=== PATIENT | female | born 1930 | race Caucasian/White ===

== ENCOUNTER 2017-04-05 13:59 | Emergency (ER) | payer MEDICARE, BC ==
--- NOTE | ~2017-04-05 | US84 ---
[id number] [address] [address] [id number] E MR#: [id number] Acc #: [id number] NAME: NEGRO PETTY : 1930 SEX: F STUDY DATE/TIME: 04/05/2017 16:06 UNIT: SED ROOM: STUDY DESCRIPTION: US LE Veins Complete Jeovany Stdy Attending Physician: Kiara Wilkins M.D. Ordering Physician: Kiara Wilkins M.D. Primary Care Physician: Matt Hernández M.D. MEDICAL IMAGING REPORT This report is preliminary unless electronic signature is present. EXAM Bilateral lower extremity venous duplex 04/05/2017 HISTORY Bilateral lower extremity edema for 2 days. Evaluate for deep vein thrombosis. FINDINGS Stone-scale images of the lower extremities were obtained as well as Doppler waveform spectral analysis and color flow Doppler imaging. There is normal blood flow and compressibility in the bilateral common femoral veins, deep femoral veins, superficial femoral veins and popliteal veins. Normal blood flow and compressibility is seen in the calf veins bilaterally. There is a 5.7 cm x 1.9 cm x 3.2 cm fluid collection in the left popliteal fossa characteristic of a Bakers cyst. IMPRESSION 1. No evidence of deep vein thrombosis within the lower extremities bilaterally. 2. 5.7 cm fluid collection in the left popliteal fossa characteristic of a Bakers cyst. Dictated by... Jean Acevedo M.D. THIS IS AN ELECTRONICALLY VERIFIED REPORT Jean Acevedo M.D. at 04/06/2017 7:21 AM LARA/[place] TD: 04/05/2017 19:42 JOB #: [id number] MEDICAL IMAGING REPORT Page 1 of 1
--- NOTE | ~2017-04-05 | EKG ---
PATIENT: NEGRO PETTY UNIT #: [id number] Ventricular Rate: 61 BPM Atrial Rate: 61 BPM P-R Interval: 168 ms QRS Duration: 88 ms Q-T Interval: 440 ms QTC Calculation(Bezet): 442 ms P [place]: 36 degrees Calculated R [place]: -34 degrees Calculated T [place]: 40 degrees Diagnosis Line: Sinus rhythm with Premature supraventricular Diagnosis Line: complexes Diagnosis Line: Left axis deviation Diagnosis Line: Minimal voltage criteria for LVH, may be normal Diagnosis Line: variant Diagnosis Line: Anterolateral infarct (cited on or before Diagnosis Line: 23-OCT-2016) Diagnosis Line: Abnormal ECG Diagnosis Line: When compared with ECG of 23-OCT-2016 11:04, Diagnosis Line: No significant change was found Diagnosis Line: Confirmed by ARCELIA ECKERT MD ([id number]) on Diagnosis Line: 04/06/2017 10:58:18 AM INTERPRETING MD: TOMEKA SANCHEZ
--- NOTE | ~2017-04-05 | CR72 ---
[facility] A Service of [facility] RADIOLOGY TEXT RESULTS PATIENT: NEGRO PETTY LOCATION: SED : [birth year] UNIT #: [id number] AGE: [address]: Kiara Wilkins MD SEX: F ORDER DR: [id number] [address] [address] [id number] E MR#: [id number] Acc #: [id number] NAME: NEGRO PETTY : 1930 SEX: F STUDY DATE/TIME: 04/05/2017 14:58 UNIT: SED ROOM: STUDY DESCRIPTION: CR Chest Single View Portable Attending Physician: Kiara Wilkins M.D. Ordering Physician: Kiara Wilkins M.D. Primary Care Physician: Matt Hernández M.D. MEDICAL IMAGING REPORT This report is preliminary unless electronic signature is present. EXAM Portable chest. INDICATION Swollen legs, congestive heart failure, chest pain. Chest pain began today. COMPARISON 10/23/2016 FINDINGS There are mild interstitial opacities in the lungs which may indicate mild interstitial edema. Cardiomegaly is stable. Atherosclerotic calcification of the aorta. IMPRESSION Cardiomegaly with mild interstitial opacities which may reflect interstitial edema. Dictated by... Saleem Wade M.D. THIS IS AN ELECTRONICALLY VERIFIED REPORT Saleem Wade M.D. at 04/05/2017 5:06 PM ARS/oskar TD: 04/05/2017 16:29 JOB #: [id number] MEDICAL IMAGING REPORT [facility] A Service [facility] RADIOLOGY TEXT RESULTS PATIENT: NEGRO PETTY LOCATION: SED : [birth year] UNIT #: [id number] AGE: [address]: Kiara Wilkins MD SEX: F ORDER DR: Page 1 of 1
[~2017-04-05 13:59] MED LIST: AMOXICILLIN500 M1 PO; ASTELIN137 MCG INH; AUGMENTIN PO; AUGMENTIN1 TAB.SR1 PO; BACTRIM DS TABL1 TA1 PO; BENADRYL25 MG PO; BYSTOLIC PO; BYSTOLIC5 MG PO; CORTISPORI10 ML OTIC AS; COUMADIN PO; COUMADIN3 MG PO; FIORICET 50-321 EACH PO; FLEXERIL10 M1 PO; GABAPENTIN300 M2 PO; HYDROCODON-ACE1 EAC7 PO; LEVO-T100 MCG PO; LEVOTHYROXINE100 MCG PO; LIDODERM30 EA TOP; MACULAR VITAMI1 EACH PO; MEDROL PO; NAPROSYN-EC500 MG PO; NEURONTIN300 MG PO; NEXIUM PO; NORCO 7.5/325 T1 TAB PO; OCUVITE TABLET1 TAB; OMNICEF300 MG PO; PERCOCET 51 UDTAB 5/ PO; PRAVASTATIN SOD20 MG PO; PREDNISONE PO; PROAIR HFA8.5 GM IH; ROBAXIN PO; SENNA LAXATIVE8.6 M1 PO; SINGULAIR PO; SPIRIVA18 MCG INH; SYMBICORT INH; SYNTHROID PO; TRAMADOL PO; VALIUM2 MG PO; VESICARE PO; VICODIN PO; WARFARIN SODIUM3 MG PO; ZITHROMAX PO; ZYRTEC PO; [UNRECOGNIZED DRUG - OTHER] PO
[2017-04-05 15:07] LABS: EOSINOPHIL# 0.1 X10e3 (0-0.7); EOSINOPHIL% 3.1 % (0.0-7.0); HEMATOCRIT 41.1 % (35.0-45.0); HEMOGLOBIN 13.6 gm/dL (12.0-16.0); LYMPHOCYTE# 1.2 X10e3 (1.0-3.5); LYMPHOCYTE% 28.8 % (17.0-45.0); MEAN CELL VOLUME 89.6 FL (83-96); MEAN CORPUSCULAR HEMOGLOBIN 29.8 PG (28-34); MEAN CORPUSCULAR HGB CONC 33.2 g/dL (30-36); MEAN PLATELET VOLUME 8.6 FL (6.5-11.5); MONOCYTE# 0.5 X10e3 (0-1.0); MONOCYTE% 12.6 % (3.0-12.0); NEUTROPHIL# 2.3 X10e3 (1.5-7.1); NEUTROPHIL% 54.5 % (40-75); PLATELET COUNT 172 X10e3 (140-420); RED BLOOD COUNT 4.58 X10e (3.90-5.30); WHITE BLOOD COUNT 4.2 X10e3 (4.0-10.5)
[2017-04-05 15:16] LABS: POC - CKMB 1.9 ng/mL (0.0-7.9); POC - TROPONIN <0.05 ng/mL (<=0.05)
[2017-04-05 15:23] LABS: DIFF IND NO
[2017-04-05 15:25] LABS: INR 2.8; PROTHROMBIN TIME (PATIENT) 32.3 SECONDS (9.5-12.4)
[2017-04-05 15:27] LABS: ALBUMIN SERUM 3.8 g/dL (3.5-5.0); ALKALINE PHOSPHATASE 59 U/L (32-92); ALT (SGPT) 16 U/L (10-40); AST (SGOT) 20 U/L (10-42); BILIRUBIN,TOTAL 0.3 mg/dL (0.2-2.0); BLOOD UREA NITROGEN 31 mg/dL (9-23); BUN/CREATININE RATIO 34.44; CALCIUM SERUM 8.3 mg/dL (8.4-10.2); CARBON DIOXIDE 31 mmol/L (22-31); CHLORIDE 103 mmol/L (100-111); CREATININE SERUM 0.9 mg/dL (0.6-1.4); GLOM FILT RATE Estimated 57.1 mL/min (>60); GLUCOSE FASTING 92 mg/dL (70-110); POTASSIUM 4.2 mmol/L (3.5-5.1); PROTEIN TOTAL SERUM 6.6 g/dL (6.0-8.3); SODIUM 137 mmol/L (135-145)
[2017-04-05 15:28] LABS: BILIRUBIN, DIRECT <0.1 mg/dL (0.0-0.2); BILIRUBIN,INDIRECT 0.2 mg/dL (0.0-0.9)
[2017-04-05 17:28] LABS: POC - CKMB 1.4 ng/mL (0.0-7.9); POC - TROPONIN <0.05 ng/mL (<=0.05)
== END 2017-04-05 17:55 | disposition home or self-care (01) ==
LOC: SED 13:59
PROVIDERS: Emergency Medicine
DX: M71.21 Synovial cyst of popliteal space [Baker], right knee (principal); R60.0 Localized edema; I10 Essential (primary) hypertension; Z86.718 Personal history of other venous thrombosis and embolism; Z79.01 Long term (current) use of anticoagulants; Z79.899 Other long term (current) drug therapy; Z88.5 Allergy status to narcotic agent
CPT/HCPCS: 29530; 36415; 71010; 80048; 80076; 82553; 83880; 84484; 85025; 85610; 93005; 93970; 99284

== ENCOUNTER 2017-04-28 06:10 | Emergency (ER) | payer MEDICARE, BC ==
[~2017-04-28] VITALS: Ht 162.6 cm; Wt 81.6 kg
--- NOTE | ~2017-04-28 | CR181 ---
[facility] [place] A Service [facility] RADIOLOGY TEXT RESULTS PATIENT: NEGRO PETTY LOCATION: SED : [birth year] UNIT #: [id number] AGE: [address]: Ratna Maher MD SEX: F ORDER DR: [id number] [place] [id number] E MR#: [id number] Acc #: [id number] NAME: NEGRO PETTY. : 1930 SEX: F STUDY DATE/TIME: 04/28/2017 7:02 UNIT: SED ROOM: STUDY DESCRIPTION: CR Lumbar Spine 2 or 3 Views Attending Physician: Ratna Maher M.D. Ordering Physician: Wallace Christianson Primary Care Physician: Matt Hernández M.D. MEDICAL IMAGING REPORT This report is preliminary unless electronic signature is present. EXAM Lumbar spine, three view series, 04/28/17 HISTORY Low back pain starting this morning FINDINGS Three views of the lumbar spine were obtained. There is disk space narrowing throughout the lumbar spine with a vacuum disk phenomenon at L1-L2, and there is prominent anterior and lateral osteophyte formations at L1-L2 as well as L2-L3. There is no anterior to posterior subluxation. IMPRESSION There is degenerative disk disease throughout the lumbar spine. There is no significant subluxation. There is no fracture visible. Dictated by... Flakito Ruffin M.D. THIS IS AN ELECTRONICALLY VERIFIED REPORT Flakito Ruffin M.D. at 04/28/2017 10:51 AM SHELLY/[place] TD: 04/28/2017 09:37 JOB #: [id number] [facility] A Service [facility] RADIOLOGY TEXT RESULTS PATIENT: NEGRO PETTY LOCATION: SED : [birth year] UNIT #: [id number] AGE: [address]: Ratna Maher MD SEX: F ORDER DR: MEDICAL IMAGING REPORT Page 1 of 1
--- NOTE | ~2017-04-28 | CR72 ---
[facility] A Service of [facility] RADIOLOGY TEXT RESULTS PATIENT: NEGRO PETTY LOCATION: SED : [birth year] UNIT #: [id number] AGE: [address]: Ratna Maher MD SEX: F ORDER DR: [id number] [place] [id number] E MR#: [id number] Acc #: [id number] NAME: NEGRO PETTY. : 1930 SEX: F STUDY DATE/TIME: 04/28/2017 7:02 UNIT: SED ROOM: STUDY DESCRIPTION: CR Chest Single View Portable Attending Physician: Ratna Maher M.D. Ordering Physician: Wallace Christianson Primary Care Physician: Matt Hernández M.D. MEDICAL IMAGING REPORT This report is preliminary unless electronic signature is present. EXAM Portable chest INDICATION Shortness of air starting this morning. Bilateral lower extremity pain. Low back pain. COMPARISON 04/23/2017. FINDINGS A portable view of the chest was obtained. Heart size and vascularity are normal and the lungs are clear. The bones are unremarkable. IMPRESSION No active disease. Dictated by... Flakito Ruffin M.D. THIS IS AN ELECTRONICALLY VERIFIED REPORT Flakito Ruffin M.D. at 04/28/2017 10:51 AM SHELLY/[place] TD: 04/28/2017 09:40 JOB #: [id number] MEDICAL IMAGING REPORT [facility] A Service of [facility] RADIOLOGY TEXT RESULTS PATIENT: NEGRO PETTY LOCATION: SED : [birth year] UNIT #: [id number] AGE: [address]: Ratna Maher MD SEX: F ORDER DR: Page 1 of 1
--- NOTE | ~2017-04-28 | EKG ---
PATIENT: NEGRO PETTY UNIT #: [id number] Ventricular Rate: 63 BPM Atrial Rate: 63 BPM P-R Interval: 152 ms QRS Duration: 82 ms Q-T Interval: 414 ms QTC Calculation(Bezet): 423 ms P [place]: 55 degrees Calculated R [place]: -45 degrees Calculated T [place]: 61 degrees Diagnosis Line: Normal sinus rhythm Diagnosis Line: Left axis deviation Diagnosis Line: Inferior infarct , age undetermined Diagnosis Line: Abnormal ECG Diagnosis Line: When compared with ECG of 05-APR-2017 14:43, Diagnosis Line: Premature supraventricular complexes are no longer Diagnosis Line: Present Diagnosis Line: Diagnosis Line: Diagnosis Line: Confirmed by DENNIS CARTER MD ([id number]) on Diagnosis Line: 05/07/2017 9:55:38 PM INTERPRETING MD: CONNOR
[2017-04-28] MEDS ORDERED: TOBRADEX ST EYE5 ML OU (06:26)
[2017-04-28] MEDS ORDERED: AUGMENTIN PO (06:26)
[2017-04-28 06:44] LABS: BASOPHIL% 0.5 % (0-2.5); EOSINOPHIL# 0.1 X10e3 (0-0.7); EOSINOPHIL% 1.9 % (0.0-7.0); HEMATOCRIT 43.4 % (35.0-45.0); HEMOGLOBIN 14.7 gm/dL (12.0-16.0); LYMPHOCYTE# 0.8 X10e3 (1.0-3.5); MEAN CELL VOLUME 89.3 FL (83-96); MEAN CORPUSCULAR HEMOGLOBIN 30.1 PG (28-34); MEAN CORPUSCULAR HGB CONC 33.8 g/dL (30-36); MEAN PLATELET VOLUME 8.4 FL (6.5-11.5); MONOCYTE# 0.5 X10e3 (0-1.0); MONOCYTE% 9.1 % (3.0-12.0); NEUTROPHIL# 4.4 X10e3 (1.5-7.1); NEUTROPHIL% 74.5 % (40-75); PLATELET COUNT 175 X10e3 (140-420); RED BLOOD COUNT 4.87 X10e (3.90-5.30); RED CELL DISTRIBUTION WIDTH 14.2 % (11.0-15.5); WHITE BLOOD COUNT 5.9 X10e3 (4.0-10.5)
[2017-04-28 06:52] LABS: DIFF IND NO
[2017-04-28 06:53] LABS: INR 3.1; PROTHROMBIN TIME (PATIENT) 35.3 SECONDS (9.5-12.4)
[2017-04-28 07:01] LABS: PARTIAL THROMBOPLASTIN TIME 39.5 SECONDS (25.6-38.1)
[2017-04-28 07:03] LABS: ALBUMIN SERUM 4.1 g/dL (3.5-5.0); ALKALINE PHOSPHATASE 61 U/L (32-92); ALT (SGPT) 20 U/L (10-40); AST (SGOT) 24 U/L (10-42); BILIRUBIN,TOTAL 0.9 mg/dL (0.2-2.0); BLOOD UREA NITROGEN 26 mg/dL (9-23); CALCIUM SERUM 8.8 mg/dL (8.4-10.2); CARBON DIOXIDE 31 mmol/L (22-31); CHLORIDE 102 mmol/L (100-111); GLOM FILT RATE Estimated 50.3 mL/min (>60); GLUCOSE FASTING 93 mg/dL (70-110); PROTEIN TOTAL SERUM 6.8 g/dL (6.0-8.3); SODIUM 141 mmol/L (135-145)
[2017-04-28 07:04] LABS: POC - CKMB 1.9 ng/mL (0.0-7.9); POC - TROPONIN <0.05 ng/mL (<=0.05)
[2017-04-28 07:05] LABS: BILIRUBIN, DIRECT <0.1 mg/dL (0.0-0.2); BILIRUBIN,INDIRECT 0.8 mg/dL (0.0-0.9)
[2017-04-28 08:55] LABS: POC - CKMB 1.5 ng/mL (0.0-7.9); POC - TROPONIN <0.05 ng/mL (<=0.05)
== END 2017-04-28 09:25 | disposition home or self-care (01) ==
LOC: SED 06:10
PROVIDERS: Emergency Medicine; Student in an Organized Health Care Education/Training Program
DX: M54.5 Low back pain (principal); M79.604 Pain in right leg; M79.605 Pain in left leg; Z86.718 Personal history of other venous thrombosis and embolism; I10 Essential (primary) hypertension; Z88.5 Allergy status to narcotic agent
CPT/HCPCS: 36415; 71010; 72100; 80048; 80076; 82550; 82553; 83880; 84484; 85025; 85610; 85730; 93005; 99284